=== PATIENT | female | born 1945 | race Caucasian/White ===

== ENCOUNTER 2024-03-16 03:20 | Emergency (ER) | payer OTHER ==
[~2024-03-16] VITALS: Ht 154.9 cm; Wt 66.2 kg
[2024-03-16 03:28] VITALS: TEMP 98.1; O2SAT 99
[2024-03-16] MEDS ORDERED: NYST15CR37 TP (04:23)
[2024-03-16 04:38] VITALS: BP 161/72; PULSE 67; RESP 18; O2SAT 100
== END 2024-03-16 04:50 | disposition home or self-care (01) ==
LOC: ER 04:02
DX: B37.9 Candidiasis, unspecified (principal); E11.9 Type 2 diabetes mellitus without complications; I10 Essential (primary) hypertension; Z00.00 Encounter for general adult medical examination without abnormal findings
CPT/HCPCS: 99283